=== PATIENT | female | born 1930 | race Caucasian/White ===

== ENCOUNTER 2018-02-09 15:35 | Emergency (ER) | payer MEDICARE, OTHER ==
[2018-02-09] MEDS ORDERED: Ondansetron 4 MG/2 ML SDV IVPUSH ONE (15:43)
[2018-02-09] MEDS ORDERED: Lactated Ringers 1,000 ML IV ONE (15:43)
--- NOTE | 2018-02-09 16:03 | EDM.PDOC ---
ED HPI GENERAL MEDICAL PROBLEM - General Chief Complaint: Abdominal Pain Stated Complaint: nausea/vomiting/diarrhea Time Seen by Provider: 02/09/18 15:35 Source of Information: Reports: Patient, Family History Limitations: Reports: No Limitations - History of Present Illness INITIAL COMMENTS - FREE TEXT/NARRATIVE: Patient comes in the emergency room after multiple episodes of vomiting with nausea and diarrhea. Patient started feeling not well last evening around midnight and said she was able to fall back asleep when she woke up this morning and she did not have an appetite and she states that her stomach was "queasy ". Shortly thereafter they were to be attending a she ended up having multiple diarrhea episodes and vomiting. She was trying to make a back home to [place] where she lives. However they could not make and decided to stop here in [place] to the emergency department to be evaluated. After entering the emergency department the son called his who stated their grandchildren all 4 children have been throwing up with nausea vomiting and diarrhea. The patient was around these children the last couple days. Symptoms are very similar to others. Past Medical History Cardiovascular History: Reports: Afib, CAD, High Cholesterol, Hypertension, Pacemaker ED ROS GENERAL - Review of Systems Review Of Systems: See Below Constitutional: Reports: Fever, Chills, Malaise, Weakness, Fatigue, Decreased Appetite Respiratory: Reports: No Symptoms Cardiovascular: Reports: No Symptoms Endocrine: Reports: No Symptoms GI/Abdominal: Reports: Diarrhea, Nausea, Stool Incontinence, Vomiting : Reports: No Symptoms Musculoskeletal: Reports: No Symptoms Skin: Reports: No Symptoms Neurological: Reports: No Symptoms Psychiatric: Reports: No Symptoms ED EXAM, GI/ABD - Physical Exam Exam: See Below Exam Limited By: No Limitations General Appearance: Alert, WD/WN, No Apparent Distress Respiratory/Chest: No Respiratory Distress, Lungs Clear, Normal Breath Sounds, No Accessory Muscle Use, Chest Non-Tender Cardiovascular: Normal Peripheral Pulses GI/Abdominal Exam: Soft, Non-Tender, No Distention, No Abnormal Bruit, Abnormal Bowel Sounds (hyperactive ) Back Exam: Normal Inspection Extremities: Normal Inspection, Normal Range of Motion Neurological: Alert, Oriented Psychiatric: Anxious Skin Exam: Warm, Dry Course - Orders/Labs/Meds Orders: Active Orders 24 hr Category Date Time Status EKG Documentation Completion [RC] URGENT Care 02/09/18 15:43 Active INFLUENZA A+B AG SCREEN [RM] Stat Lab 02/09/18 15:45 Ordered Labs: Laboratory Tests 02/09/18 02/09/18 Range/Units 16:32 16:32 WBC 8.0 (4.0-10.0) x10^3/uL RBC 5.07 (4.00-5.50) x10^6/uL Hgb 13.4 (12.0-16.0) g/dL Hct 40.0 (33.0-47.0) % MCV 78.9 (78.0-93.0) fL MCH 26.4 (26.0-32.0) pg MCHC 33.5 (32.0-36.0) g/dL RDW Coeff of Jignesh 14.7 (10.0-15.0) % Plt Count 189 (130-400) x10^3/uL Neut % (Auto) 90.4 H (50.0-80.0) % Lymph % (Auto) 5.4 L (25.0-50.0) % [place] % (Auto) 3.5 (2.0-11.0) % Eos % (Auto) 0.4 (0.0-4.0) % Baso % (Auto) 0.3 (0.2-1.2) % Sodium 140 (136-145) mmol/L Potassium 3.5 (3.5-5.1) mmol/L Chloride 103 (98-107) mmol/L Carbon Dioxide 29 (21-32) mmol/L Anion Gap 11.5 BUN 25 H (7-18) mg/dL Creatinine 1.1 H (0.55-1.02) mg/dL Est Cr Clr Drug Dosing TNP Estimated GFR (MDRD) 47 Glucose 111 H (74-106) mg/dL Calcium 8.8 (8.5-10.1) mg/dL Troponin I < 0.017 (<=0.056) ng/mL NT-Pro-B Natriuret Pep 396 (<=450) pg/mL Meds: Medications Discontinued Medications Generic Name Dose Route Start Last Admin Trade Name Freq PRN Reason Stop Dose Admin Lactated Ringer's 1,000 mls @ 1,000 mls/hr 02/09/18 15:43 02/09/18 15:50 Ringers, Lactated IV 02/09/18 16:42 1,000 mls/hr .BOLUS ONE Administration Ondansetron HCl 4 mg 02/09/18 15:43 02/09/18 15:55 Zofran IVPUSH 02/09/18 15:44 4 mg ONETIME ONE Administration Departure - Departure Time of Disposition: 17:30 Disposition: Home, Self-Care 01 Condition: Good Clinical Impression: Gastroenteritis - Discharge Information Instructions: Viral Gastroenteritis, Adult, [id number], Nausea and Vomiting, Adult, [id number] Referrals: Zachary Villarreal NP [Primary Care Provider] - Forms: ED Department Discharge Additional Instructions: 1. Rest 2. Increase her water intake 3. Eat a bland diet for the next 24 hours avoid spicy foods 4. Follow up with PCP if not better by Sunday or Sunday - My Orders Last 24 Hours: My Active Orders 02/09/18 15:43 EKG Documentation Completion [RC] URGENT 02/09/18 15:45 INFLUENZA A+B AG SCREEN [RM] Stat - Assessment/Plan Last 24 Hours: My Active Orders 02/09/18 15:43 EKG Documentation Completion [RC] URGENT 02/09/18 15:45 INFLUENZA A+B AG SCREEN [RM] Stat Assessment:: 1. nausea/vomiting 2. Gastroenteritis Plan: 1. Labs completed in the ER. Results reviewed with the patient and family 2. EKG completely in the ER results reviewed with the patient and family 3. IV started-bolus of lactated Ringer provided 4. Zofran 4 mg IV given in ER for nausea 5. Pt will be discharged home with gastroenteritis with her son. Information given to the patient and son regarding when seek emergency care or if symptoms return or progress
[2018-02-09 17:07] LABS: CHLORIDE,CL 103 mmol/L (98-107); SODIUM,NA 140 mmol/L (136-145)
== END 2018-02-09 17:15 | disposition home or self-care (01) ==
LOC: EDBD 15:35 → VM.ED 15:35
DX: K52.9 Noninfective gastroenteritis and colitis, unspecified (principal); E78.00 Pure hypercholesterolemia, unspecified; I10 Essential (primary) hypertension
CPT/HCPCS: 36415; 80048; 83880; 84484; 85025; 87804; 93005; 96372; 99283; J2405; J7120